=== PATIENT | male | born 1990 | race Caucasian/White ===

== ENCOUNTER 2017-12-22 21:06 | Emergency (ER) | payer OTHER ==
[~2017-12-22] VITALS: Ht 175.3 cm; Wt 81.6 kg
--- NOTE | 2017-12-22 22:12 | PHYS DOC ---
Adult General Chief Complaint Chief Complaint: ANXIETY/PANIC ATTACK HPI HPI 27-year-old male with a history of anxiety which is not treated now presents the emergency department because of persistent anxiety. Patient is very stressed out because of life issues. He denies SI and HI overdose or self injury. Patient denies being a danger to self or others. He is more anxious than usual and is requesting something to help with his anxiety significant sleep and follow-up with his primary care doctor tomorrow. Patient presents with his sister accompanying him. He denies alcoholism or drugs Review of Systems Review of Systems Constitutional: Denies fever or chills [] Eyes: Denies change in visual acuity, redness, or eye pain [] HENT: Denies nasal congestion or sore throat [] Respiratory: Denies cough or shortness of breath [] Cardiovascular: No additional information not addressed in HPI [] GI: Denies abdominal pain, nausea, vomiting, bloody stools or diarrhea [] : Denies dysuria or hematuria [] Musculoskeletal: Denies back pain or joint pain [] Integument: Denies rash or skin lesions [] Neurologic: Denies headache, focal weakness or sensory changes [] Endocrine: Denies polyuria or polydipsia [] All other systems were reviewed and found to be within normal limits, except as documented in this note. Physical Exam Physical Exam Constitutional: Well developed, well nourished, no acute distress, non-toxic appearance. [] HENT: Normocephalic, atraumatic, bilateral external ears normal, oropharynx moist, no oral exudates, nose normal. [] Eyes: PERRLA, EOMI, conjunctiva normal, no discharge. [] Neck: Normal range of motion, no tenderness, supple, no stridor. [] Cardiovascular:Heart rate regular rhythm, no murmur [] Lungs & Thorax: Bilateral breath sounds clear to auscultation [] Abdomen: Bowel sounds normal, soft, no tenderness, no masses, no pulsatile masses. [] Skin: Warm, dry, no erythema, no rash. [] Back: No tenderness, no CVA tenderness. [] Extremities: No tenderness, no cyanosis, no clubbing, ROM intact, no edema. [] Neurologic: Alert and oriented X 3, normal motor function, normal sensory function, no focal deficits noted. [] Psychologic: Affect normal, judgement normal, mood normal. [] EKG EKG [] Radiology/Procedures Radiology/Procedures [] Course & Med Decision Making Course & Med Decision Making Pertinent Labs and Imaging studies reviewed. (See chart for details) Signs and symptoms consistent with anxiety in a patient with a known history of anxiety. No indication for emergent psychiatric evaluation. Xanax given in ED. Patient improved on reevaluation prior to discharge. No further workup or treatment indicated at this time patient agrees with outpatient follow-up and strict return precautions given [] Dragon Disclaimer Dragon Disclaimer This electronic medical record was generated, in whole or in part, using a voice recognition dictation system. Departure Departure: Impression: Primary Impression: Anxiety Disposition: 01 HOME, SELF-CARE Condition: IMPROVED Referrals: PCPMAKSIM (PCP) Patient Instructions: Anxiety and Panic Attacks, [id number] Additional Instructions: You're suffering from anxiety. You been given a dose of Xanax. Follow-up with your doctor tomorrow for reevaluation and to discuss whether you may benefit from a prescription for anxiety medication such as Xanax for use as needed and to arrange outpatient counseling. Return immediately for new severe worsening symptoms BIJU MANCILLA MD Dec 22, 2017 22:12
[2017-12-22] MEDS ORDERED: ALPRAZolam 0.5 MG TABLET PO ONE (22:15)
[2017-12-22] MEDS ORDERED: ALPRAZolam 0.25 MG TABLET PO ONE (22:30)
[2017-12-22 23:46] VITALS: BP 113/60
== END 2017-12-22 23:46 | disposition home or self-care (01) ==
LOC: ER 21:06
DX: F41.9 Anxiety disorder, unspecified (principal)
CPT/HCPCS: 99284